=== PATIENT | male | born 1950 | race Caucasian/White ===

== ENCOUNTER → 2023-11-21 | Outpatient (CLI) | payer OTHER ==
[2023-11-21 07:37] LABS: Anisocytosis Moderate; HCT 36.4 % (39.0-53.0); HGB 12.1 gm/dL (13.0-17.5); MCH 34.2 pg (25.0-35.0); MCHC 33.3 g/dL (31.0-37.0); MCV 102.7 fL (80.0-100.0); Macrocytosis Marked; Mean Platelet Volume 14.2; RBC 3.54 m/uL (4.30-5.90); RDW 20.3 % (11.5-15.5)
[2023-11-21 07:51] LABS: ALT 19 U/L (4-49); AST 30 U/L (17-59); African American GFR (CKD) 80 (>60 ml/min/1.73 sqM); Albumin 4.4 g/dL (3.5-5.0); Albumin/Globulin Ratio 1.4; Alkaline Phosphatase 81 U/L (38-126); Anion Gap 9 mmol/L; Blood Urea Nitrogen 16 mg/dL (9-20); Calcium 9.4 mg/dL (8.4-10.2); Carbon Dioxide 28 mmol/L (22-30); Chloride 99 mmol/L (98-107); Globulin 3.2 g/dL; Glucose 113 mg/dL (74-99); Non-African American GFR(CKD) 69 (>60 ml/min/1.73 sqM); Potassium 4.1 mmol/L (3.5-5.1); Sodium 136 mmol/L (137-145); Total Bilirubin 1.1 mg/dL (0.2-1.3); Total Protein 7.6 g/dL (6.3-8.2)
[2023-11-21 08:04] LABS: Platelet Count 74 k/uL (150-450)
== END | disposition home or self-care (01) ==
LOC: LABWHC1 07:21
DX: C93.10 Chronic myelomonocytic leukemia not having achieved remission (principal)
CPT/HCPCS: 36415; 80053; 85027

== ENCOUNTER → 2023-11-29 | Outpatient (CLI) | payer OTHER ==
[2023-11-29 10:44] LABS: ALT 19 U/L (10-49); AST 28 U/L (14-35); Albumin 4.2 g/dL (3.8-4.9); Alkaline Phosphatase 94 U/L (41-126); BUN/Creat Ratio 14.71 Ratio (12.00-20.00); Blood Urea Nitrogen 20.6 mg/dL (9.0-27.0); Calcium 8.9 mg/dL (8.7-10.3); Carbon Dioxide 27.2 mmol/L (21.6-31.8); Chloride 96 mmol/L (96-109); Glucose 99 mg/dL (70-110); Potassium 5.2 mmol/L (3.5-5.5); Sodium 135 mmol/L (135-145); Total Bilirubin 0.7 mg/dL (0.3-1.2); Total Protein 7.2 g/dL (6.2-8.2)
[2023-11-29 10:48] LABS: HCT 36.7 % (39.6-50.0); HGB 11.7 g/dL (13.0-17.0); MCH 33.5 pg (27.0-32.0); MCHC 31.9 g/dL (32.0-37.0); MCV 105.2 FL (80.0-97.0); Mean Platelet Volume 13.9 FL (9.5-12.2); NRBC Per 100 WBC 0.02 X 10*3/uL (0.00-0.01); Platelet Count 91 X 10*3/uL (140-440); RBC 3.49 X 10*6/uL (4.40-5.60); RDW 20.2 % (11.5-14.5); WBC 17.29 X 10*3/uL (4.50-10.00)
== END | disposition home or self-care (01) ==
LOC: LABWHC1 07:15
PROVIDERS: ATTEND Internal Medicine Hematology & Oncology
DX: C93.10 Chronic myelomonocytic leukemia not having achieved remission (principal)
CPT/HCPCS: 36415; 80053; 85027